=== PATIENT | male | born 1955 | race Caucasian/White ===

== ENCOUNTER 2016-09-25 16:40 | Emergency (ER) | payer OTHER ==
[2016-09-25 16:53] VITALS: BMI 21.1
[2016-09-25] MEDS ORDERED: IBUPROFEN 600 MG TABLET (FP) PO ONE ×3 (17:42→22:23)
[2016-09-25 18:05] LABS: VENOUS PH 7.43 (7.32-7.42)
[2016-09-25 18:06] LABS: VENOUS BLOOD GAS HCO3 26.3 meq/L (19-25)
[2016-09-25 18:08] LABS: BASOPHIL 0.5 % (0-2.0); EOSINOPHIL 0.3 % (0-4.5); MCH 28.5 pg (25.7-33.7); MCHC 32.8 g/dl (32.0-35.9); MEAN CELL VOLUME 87.1 fl (80-96); MEAN PLT VOLUME 7.8 fl (7.5-11.1); NEUTROPHILS 78.9 % (42.8-82.8); PLATELET COUNT 153 K/MM3 (134-434); RDW 13.1 % (11.9-15.9); WHITE BLOOD COUNT 6.5 K/mm3 (4.0-10.0)
[2016-09-25 18:20] LABS: URINE APPEARANCE CLEAR; URINE BILIRUBIN NEGATIVE (NEGATIVE); URINE BLOOD NEGATIVE (NEGATIVE); URINE COLOR DKYELLOW; URINE GLUCOSE (UA) NEGATIVE (NEGATIVE); URINE KETONE TRACE (NEGATIVE); URINE LEUK ESTERASE NEGATIVE (NEGATIVE); URINE NITRITE NEGATIVE (NEGATIVE); URINE PROTEIN 2+ (NEGATIVE); URINE UROBILINOGEN 2.0 E.U/dl E.U./dl (0.2-1.0)
[2016-09-25 18:22] LABS: URINE MUCUS MODERATE; URINE RBC 15 /hpf (0-3); URINE WBC 2 /hpf (3-5)
[2016-09-25] MEDS ORDERED: IBUPROFEN 400 MG TABLET (FP) PO ONE (18:34)
--- NOTE | 2016-09-25 18:38 | PDOC ---
History of Present Illness <Aranza Gill - Last Filed: 09/25/16 21:36> - General History Source: Patient Exam Limitations: No Limitations - History of Present Illness Initial Comments: 09/25/16 19:00 The patient is a 61 year old male with no significant past medical history, who presents to the ED with dysuria since yesterday. Patient states he has been having body fatigue, headaches, and fevers since last Monday, as high as 104 degrees. He also reports a non-productive cough for two days. He denies chest pain, sinus pain, chills, abdominal pain, nausea, vomiting, diarrhea. He denies hematuria, frequency. He went to urgent care on and was diagnosed with pharyngitis, and prescribed amoxicillin for 10 days. Symptoms worsened so he went in to see Dr. Ndiaye on Monday. Dr. Ndiaye sent him to [facility] for labs and urine analysis which came back negative. Patient states he has been alternating taking Tylenol and Motrin since Monday. He states he has taken six doses of amoxicillin (has taken for 4 days), has 4 remaining. He denies any sick contacts, recent travels. PCP: Dr. Ndiaye <Angelo Becker - Last Filed: 09/25/16 21:43> - General Chief Complaint: SIRS, Suspected/Possible Stated Complaint: FEVER/COLD SWEATS/HEAD ACHES Time Seen by Provider: 09/25/16 16:56 Past History - Past Medical History Anemia: No Asthma: No Cancer: No Cardiac Disorders: No CVA: No COPD: No CHF: No Dementia: No Diabetes: No GI Disorders: Yes (HEARTBURN,ESOPHAGEAL REFLUX) Disorders: No HTN: No Hypercholesterolemia: No Liver Disease: No Seizures: No Thyroid Disease: No - Surgical History Abdominal Surgery: No Appendectomy: No Cardiac Surgery: No Cholecystectomy: No Lung Surgery: No Neurologic Surgery: No Orthopedic Surgery: No - Psycho/Social/Smoking Cessation Hx Anxiety: No Suicidal Ideation: No Smoking History: Never smoked Have you smoked in the past 12 months: No Hx Alcohol Use: No Drug/Substance Use Hx: No Substance Use Type: None Hx Substance Use Treatment: No <Aranza Gill - Last Filed: 09/25/16 21:36> <Angelo Becker - Last Filed: 09/25/16 21:43> - Past Medical History Allergies/Adverse Reactions: Allergies Allergy/AdvReac Type Severity Reaction Status Date / Time No Known Allergies Allergy Verified 09/25/16 16:53 Home Medications: Ambulatory Orders Multivitamin with Minerals [Multiple Vitamin] 1 each PO DAILY 01/11/12 Levofloxacin [Levaquin] 750 mg PO DAILY #7 tab 09/25/16 Review of Systems - Review of Systems Able to Perform ROS?: Yes Comments:: 09/25/16 19:00 GENERAL/CONSTITUTIONAL: + fever. + fatigue. No chills. HEAD, EYES, EARS, NOSE AND THROAT: No change in vision. No ear pain or discharge. No sore throat. CARDIOVASCULAR: No chest pain or shortness of breath. RESPIRATORY: + non productive cough. No wheezing, or hemoptysis. GASTROINTESTINAL: No nausea, vomiting, diarrhea or constipation. GENITOURINARY: No dysuria, frequency, or change in urination. MUSCULOSKELETAL: No joint or muscle swelling or pain. No neck or back pain. SKIN: No rash NEUROLOGIC: +headache. No vertigo, loss of consciousness, or change in strength/ sensation. ENDOCRINE: No increased thirst. No abnormal weight change. HEMATOLOGIC/LYMPHATIC: No anemia, easy bleeding, or history of blood clots. ALLERGIC/IMMUNOLOGIC: No hives or skin allergy. <Angelo Becker - Last Filed: 09/25/16 21:43> *Physical Exam - Vital Signs Last Vital Signs Temp Pulse Resp BP Pulse Ox 102.7 F H 88 20 119/54 100 09/25/16 16:49 09/25/16 16:49 09/25/16 16:49 09/25/16 16:49 09/25/16 18:20 <Aranza Gill - Last Filed: 09/25/16 21:36> - Vital Signs Last Vital Signs Temp Pulse Resp BP Pulse Ox 102.7 F H 88 20 119/54 100 09/25/16 16:49 09/25/16 16:49 09/25/16 16:49 09/25/16 16:49 09/25/16 18:20 - Physical Exam Comments: 09/25/16 19:01 GENERAL: Awake, alert, and fully oriented, in no acute distress HEAD: No signs of trauma EYES: PERRLA, EOMI, sclera anicteric, conjunctiva clear ENT: Auricles normal inspection, hearing grossly normal, nares patent, oropharynx clear without exudates. Moist mucosa. No meningismus NECK: Normal ROM, supple, no lymphadenopathy, JVD, or masses LUNGS: Breath sounds equal, clear to auscultation bilaterally. No wheezes, and no crackles HEART: Regular rate and rhythm, normal S1 and S2, no murmurs, rubs or gallops ABDOMEN: Soft, nontender, normoactive bowel sounds. No guarding, no rebound. No masses EXTREMITIES: Normal range of motion, no edema. No clubbing or cyanosis. No cords, erythema, or tenderness NEUROLOGICAL: Cranial nerves II through XII grossly intact. Normal speech, normal gait SKIN: Very Warm to touch. Dry, normal turgor, no rashes or lesions noted. <Angelo Becker - Last Filed: 09/25/16 21:43> Heart Score/ECG Review #1 General ECG Interpretation: Sinus Rhythm, Normal Rate (73), Normal Intervals, No acute ischemic changes 09/25/16 18:38 TWI v1/v2. otherwise no ischemic changes. <Aranza Gill - Last Filed: 09/25/16 21:36> ED Treatment Course - LABORATORY CBC & Chemistry Diagram: 09/25/16 17:45 09/25/16 17:45 - ADDITIONAL ORDERS Additional order review: Laboratory Results 09/25/16 09/25/16 09/25/16 18:08 18:00 17:45 VBG pH 7.43 H POC VBG pCO2 40.2 POC VBG pO2 22.0 L Mixed VBG HCO3 26.3 H Lactic Acid 1.3 Urine Color Dkyellow Urine Appearance Clear Urine pH 5.0 Urine Protein 2+ H Urine Glucose (UA) Negative Urine Ketones Trace H Urine Blood Negative Urine Nitrite Negative Urine Bilirubin Negative Urine Urobilinogen 2.0 e.u/dl Ur Leukocyte Esterase Negative Urine RBC 15 Urine WBC 2 Urine Mucus Moderate 09/25/16 17:45 RBC 3.97 L MCV 87.1 MCHC 32.8 RDW 13.1 MPV 7.8 Neutrophils % 78.9 Lymphocytes % 12.7 Monocytes % 7.6 Eosinophils % 0.3 D Basophils % 0.5 <Aranza Gill - Last Filed: 09/25/16 21:36> - LABORATORY CBC & Chemistry Diagram: 09/25/16 17:45 09/25/16 17:45 - ADDITIONAL ORDERS Additional order review: Laboratory Results 09/25/16 09/25/16 09/25/16 18:08 18:00 17:45 VBG pH 7.43 H POC VBG pCO2 40.2 POC VBG pO2 22.0 L Mixed VBG HCO3 26.3 H Sodium Potassium Chloride Carbon Dioxide Anion Gap BUN Creatinine Creat Clearance w eGFR Random Glucose Lactic Acid 1.3 Calcium Total Bilirubin AST ALT Alkaline Phosphatase Total Protein Albumin Urine Color Dkyellow Urine Appearance Clear Urine pH 5.0 Urine Protein 2+ H Urine Glucose (UA) Negative Urine Ketones Trace H Urine Blood Negative Urine Nitrite Negative Urine Bilirubin Negative Urine Urobilinogen 2.0 e.u/dl Ur Leukocyte Esterase Negative Urine RBC 15 Urine WBC 2 Urine Mucus Moderate 09/25/16 17:45 VBG pH POC VBG pCO2 POC VBG pO2 Mixed VBG HCO3 Sodium 138 Potassium 4.1 Chloride 104 Carbon Dioxide 25 Anion Gap 9 BUN 16 D Creatinine 0.9 Creat Clearance w eGFR > 60 Random Glucose 109 H Lactic Acid Calcium 8.1 L Total Bilirubin 0.3 AST 85 H D ALT 53 D Alkaline Phosphatase 77 Total Protein 5.5 L Albumin 2.7 L D Urine Color Urine Appearance Urine pH Urine Protein Urine Glucose (UA) Urine Ketones Urine Blood Urine Nitrite Urine Bilirubin Urine Urobilinogen Ur Leukocyte Esterase Urine RBC Urine WBC Urine Mucus 09/25/16 18:08 Influenza Types A,B Antigen ([facility]) - Final Nasopharyngeal Swab - Final 09/25/16 17:45 RBC 3.97 L MCV 87.1 MCHC 32.8 RDW 13.1 MPV 7.8 Neutrophils % 78.9 Lymphocytes % 12.7 Monocytes % 7.6 Eosinophils % 0.3 D Basophils % 0.5 - RADIOLOGY Radiology Studies Ordered: 09/25/16 21:43 EXAM: CHEST PA & LAT REASON FOR EXAM: fever COMPARISON: None. FINDINGS: Cardiomediastinal silhouette is normal. Pulmonary vascularity is normal. There is no superior mediastinal widening or hilar contour abnormality. Tracheal air column is midline. Alveolar consolidation developing in the lingular segment. The rest of the lung lara are clear. There is no effusion or pneumothorax. Bony structures are intact. IMPRESSION: Lingular pneumonia THIS DOCUMENT HAS BEEN ELECTRONICALLY SIGNED Berenice M. Aman, D.O. - Medications Given in the ED: ED Medications Discontinued Medications Generic Name Dose Route Start Last Admin Trade Name Stevie PRN Reason Stop Dose Admin Ibuprofen 400 mg 09/25/16 18:34 09/25/16 17:55 Motrin - PO 09/25/16 18:35 400 mg ONCE ONE Administration <Angelo Becker - Last Filed: 09/25/16 21:43> Medical Decision Making - Medical Decision Making 09/25/16 21:31 61 yo male with no pmhx here wtih c/o fever x 5 days. last few days has had nonproductive cough. previously was seen for sore throat, and started on amox by urgent care 4 days ago. still having fevers despite. now also c/o myalgia, body aches low back pain and dysuria. was seen 2 days ago here in ED, had routine blood work cultures and ua urine cultures which were negative. pcp dr. ndiaye. no cp . no sinus pressure or pain. no rash. no abd pain. on exam awake alert. lungs clear heart rrr no mrg. abd soft NT ND. no cva tenderness. skin warm and dry no rash. throat no exudate , no erythema, uvula midline. nuero alet oriented x 3. no menigmus. differnetial: lyme, atypical viral syndrome, uti, pyelo, pna, mono unlikely due to pt age as is strept pharyngitis. less likely. plan cxr labs lyme titer, cbc culrues ua urine culture. <Aranza Gill - Last Filed: 09/25/16 21:36> *DC/Admit/Observation/Transfer - Discharge Dispostion Admit: No <Aranza Gill - Last Filed: 09/25/16 21:36> - Attestations Scribe Attestion: 09/25/16 19:01 Documentation prepared by Angelo Becker, acting as medical biller for Aranza Gill MD, . <Angelo Becker - Last Filed: 09/25/16 21:43> Diagnosis at time of Disposition: Pneumonia - Prescriptions Prescriptions: Levofloxacin [Levaquin] 750 mg PO DAILY #7 tab - Patient Instructions Printed Discharge Instructions: Pneumonia-Adult Additional Instructions: you should discontinue amoxicillin. you will be prescribed a different antiobiotic called levqauin 750 mg which you should take once daily starting tomorrow on 09/26/16. return for persistant fever, weakness, vomiting, confusion or any concerns. you lyme test was sent and is pending. your xray shows early pneumonia. follow up with dr ndiaye on this week. call to schedulel.
[2016-09-25 18:49] LABS: ALBUMIN 2.7 g/dl (3.4-5.0); ANION GAP 9 (8-16); CALCIUM 8.1 mg/dL (8.5-10.1); CO2 25 mmol/L (21-32); CREATININE 0.9 mg/dL (0.7-1.3); GLUCOSE,RANDOM 109 mg/dL (74-106); SGOT/AST 85 U/L (15-37); SGPT/ALT 53 U/L (12-78)
[2016-09-25 18:51] LABS: ALK PHOS 77 U/L (45-117); BILIRUBIN,TOTAL 0.3 mg/dL (0.2-1.0); TOT PROT 5.5 g/dl (6.4-8.2)
[2016-09-25 19:11] VITALS: BP 111/67; PULSE 63; TEMP 99.9
[2016-09-25] MEDS ORDERED: SODIUM CHLORIDE 0.9% 1000 ML INFUS.BAG IV ONE (20:37)
[2016-09-25] MEDS ORDERED: LEVOFLOXACIN 750 MG IVPB 150 ML IVPB ONE ×2 (20:37→20:43)
--- NOTE | 2016-09-26 10:37 | EKG ---
Test Reason : Blood Pressure : / mmHG Vent. Rate : 073 BPM Atrial Rate : 073 BPM P-R Int : 124 ms QRS Dur : 100 ms QT Int : 370 ms P-R-T Axes : 057 -04 043 degrees QTc Int : 407 ms NORMAL SINUS RHYTHM NORMAL ECG NO PREVIOUS ECGS AVAILABLE Confirmed by OMAYRA PENN MD ([id number]) on 09/26/2016 10:36:42 AM Referred By: Confirmed By:OMAYRA PENN MD
== END 2016-09-25 22:24 | disposition home or self-care (01) ==
LOC: JER 16:40
DX: J18.9 Pneumonia, unspecified organism (principal)
CPT/HCPCS: 36415; 71020-TC; 80053; 81003; 81015; 82803; 83605; 85025; 87040; 87086; 87804; 93005; 93010; 99283-25

== ENCOUNTER 2020-02-29 07:54 | Emergency (ER) | payer OTHER ==
[2020-02-29 08:09] VITALS: BP 121/70; PULSE 64; TEMP 98.9; BMI 22.5
[2020-02-29] MEDS ORDERED: ACETAMINOPHEN 1000 MG/100 ML VIAL (NON FORMULARY) IVPB ONE (08:18)
[2020-02-29] MEDS ORDERED: ACETAMINOPHEN INJECTION 100 ML IVPB ONE (08:26)
[2020-02-29 08:54] LABS: BASO % 0.9 % (0-2.0); EOS % 0.3 % (0-4.5); HEMATOCRIT 41.5 % (35.4-49); HEMOGLOBIN 13.5 GM/dl (11.7-16.9); LYMPH % 11.9 % (8-40); MCH 29.4 pg (25.7-33.7); MCHC 32.6 g/dl (32.0-35.9); MEAN CELL VOLUME 90.2 fl (80-96); MEAN PLT VOLUME 7.3 fl (7.5-11.1); MONO % 7.5 % (3.8-10.2); NEUT % 79.4 % (42.8-82.8); PLATELET COUNT 249 K/MM3 (134-434); RDW 12.7 % (11.9-15.9); WHITE BLOOD COUNT 8.7 K/mm3 (4.0-10.8)
[2020-02-29 09:02] LABS: BILIRUBIN,TOTAL 1.1 mg/dl (0.2-1); CALCIUM 9.1 mg/dl (8.5-10); CREATININE 1.5 mg/dl (0.55-1.3); TOT PROT 6.4 g/dl (6.4-8.2)
[2020-02-29] MEDS ORDERED: KETOROLAC TROMETHAMINE 30 MG/1 ML VIAL IVPUSH ONE (10:09)
[2020-02-29] MEDS ORDERED: KETOROLAC TROMETHAMINE 30 MG/1 ML VIAL ONE (10:15)
== END 2020-02-29 11:06 | disposition home or self-care (01) ==
LOC: FER 07:54
PROC: 3E033NZ Introduction of Analgesics, Hypnotics, Sedatives into Peripheral Vein, Percutaneous Approach (ICD-10-PCS; principal; 2020-02-29)
PROC: 3E0333Z Introduction of Anti-inflammatory into Peripheral Vein, Percutaneous Approach (ICD-10-PCS; 2020-02-29)
DX: N20.0 Calculus of kidney (principal)
CPT/HCPCS: 36415; 74176-TC; 80053; 81003; 85025; 99285-25; J0131

== ENCOUNTER 2023-11-06 04:28 | Day surgery (SDC) | payer OTHER ==
[2023-11-02 13:44] VITALS: BMI 21.8
[2023-11-06] MEDS ORDERED: ONDANSETRON 4 MG/2 ML VIAL IVPUSH PRN (15:13)
[2023-11-06] MEDS ORDERED: LACTATED RINGERS SOLUTION 1,000 ML IV SCH (15:15)
[2023-11-06] MEDS ORDERED: MIDAZOLAM HCL 2 MG/2 ML SINGLE DOSE VIAL ONE (16:51)
[2023-11-06] MEDS ORDERED: PROPOFOL 20 ML ONE ×2 (17:17→17:30)
[2023-11-06] MEDS: ceFAZolin SODIUM 1 GM VIAL IVPB ONE (17:20)
[2023-11-06 18:44] VITALS: RESP 18
[2023-11-06 19:31] VITALS: BP 137/75; PULSE 73; TEMP 97.8
== END 2023-11-06 19:30 | disposition home or self-care (01) ==
LOC: JASU-SURG 04:28
PROVIDERS: ATTEND Urology
PROC: 0TND8ZZ Release Urethra, Via Natural or Artificial Opening Endoscopic (ICD-10-PCS; principal; 2023-11-06 14:00)
DX: N35.912 Unspecified bulbous urethral stricture, male (principal)
CPT/HCPCS: 94760